=== PATIENT | female | born 2000 | race Hispanic/Latino ===

== ENCOUNTER 2019-07-30 05:58 | Inpatient (IN) | payer MEDICAID, OTHER ==
[2019-07-30 06:21] VITALS: BMI 43.0
[2019-07-30] MEDS ORDERED: hydrALAZINE 20 MG/ML VIAL SLOW IVP PRN ×2 (06:52→07:24)
--- NOTE | 2019-07-30 07:03 | PDOC.FPROB ---
FMR OB H&P: HPI - History of Present Illness Chief Complaint: Vaginal bleeding Indentification: 19 yo at 35.4 weeks EGA by U/S c/w LMP History of Present Illness: Patient is a 19 yo female at 35.4 weeks EGA by 10.4 wk U/S c/w LMP (JESSY 02/2020) who presents to L&D with complaint of vaginal bleeding. She states she woke up around 0400 today and thought she was urinating on herself. When she went to the bathroom she saw a gush of blood, denies any clots. Currently she is having some spotting. She additionally states she now is feeling contractions about every 5 minutes. Previously she said she was experiencing intermittent Ross-Bell contractions (c/w [facility] clinic records) but now feels like her contractions are regular. Patient additionally complains of intermittent back pain and pelvic pain that started this morning as well. Was seen at [facility] yesterday for thick white vaginal discharge, had VP3 and GBS swabs obtained with results still pending. Denies any fever/chills, cough, congestion , dysuria. Primary Care Physician: Bishnu FMR OB H&P: Current - Care : 1 Para: 0 Gestational age: 35.4 Due date: 08/30/2019 Dating Criteria: LMP c/w 10.4 Course/Complications: Obesity LGA fetus on ultrasounds - OB Labs Blood type: O RH: positive Antibody Screen: negative HIV: negative RPR: negative HepBsAg: negative Rubella: immune Urine drug screen: negative Gonorrhea: negative Chlamydia: negative Pap Smear: Not done due to age 1 hour gtt: 103 A1c: 5.2 GBS: unknown (drawn at visit on 07/28) H&H: 10.4/30.5 Platelets: 225 - First Trimester Ultrasound First trimester: 10.4 wk sono c/w JESSY by LMP - Anatomy Survey Anatomy survey: 25.4 wks- 67.7% hadlock, Anterior placenta, suboptimal spine view - Additional Ultrasound Additional: 06/16- 1644g hadlock 92.7% 07/08- 2544g hadlock 95.7%, HARSHA 8.26 FMR OB H&P: History - Past Medical History PMH: Obesity, migraines, and seasonal allergies - OB History OB History: 1st - INSTRUMENT SPECIALIST History INSTRUMENT SPECIALIST History: No hx of STD - Surgical History Sx History: None - Social History Social History: Denies any smoking, drinking or illicit drug use - Family History Family History: Noncontributory FMR OB H&P: Medications - Current Home Medications: Medication Instructions Recorded Confirmed Type Docusate [Colace] 1 tab PO DAILY 07/30/19 07/30/19 History Vit,Babar 74/Iron/Folic 1 tab PO DAILY 07/30/19 07/30/19 History [ Low Iron Tablet] Allergies/Adverse Reactions: Allergies Allergy/AdvReac Type Severity Reaction Status Date / Time No Known Allergies Allergy Verified 07/30/19 06:19 FMR OB H&P: ROS - Review of Systems General: denies: fever/chills, weight/appetite/sleep changes, fatigue Eyes: denies: vision changes ENT: denies: nasal congestion Cardiovascular: denies: chest pain, palpitation, edema Respiratory: denies: cough, congestion, shortness of breath Gastrointestinal: reports: cramping. denies: abdominal pain, nausea, vomiting, constipation Genitourinary (Female): reports: hematuria, vaginal discharge, vaginal bleeding , contractions, vaginal pressure. denies: incontinence, dysuria Musculoskeletal: denies: pain, tenderness, swelling, decrease range of motion, arthritis/arthralgias Neurologic: denies: syncope, weakness, headache Integumentary: denies: itching, rash, lesions Psychological: denies: depression, anxiety FMR OB H&P: Vital Signs - Maternal Vital signs: BP 128/77, HR 98 - Heart Tones Baseline: 145 Variability: moderate Acceleration: present Deceleration: absent Category: category 1 [place] contractions every: 3-5 min FMR OB H&P: Physical Exam - Physical Exam General: NAD, awake, alert and oriented HEENT: normocephalic and atraumatic, EOMI, MMM, conjunctiva clear, no scleral icterus, grossly normal vision, grossly normal hearing Neck: supple, no JVD Chest: non-tender to palpation, no lesions Heart: RRR, normal S1/S2, no murmurs/rubs/gallops, pulses present, no edema General: CTAB, no respiratory distress, good air movement Abdomen: soft, gravid, non-tender Musculoskeletal: pulses present, FROM in all four extremities Neurological: sensation to pain,touch and proprioception grossly normal, no focal deficit Skin: no rash, good tugor, no jaundice Psychiatric: intact recent and remote memory, normal mood and affect - Pelvic Exam Vulva: normal hair distribution, no lesions Cervix: no lesions Deviation from normal: moderate amount of blood tinged fluid pooling in posterior vagina SVE: 50/-2 Armstrong score: 5 Membranes: appears ruptured Presentation: cephalic FMR OB H&P: A/P - Problem List (1) premature rupture of membranes Current Visit: Yes Status: Acute Code(s): O42.919 - PRETRM DARIA ROM, UNSP TIME BETW RUPT AND ONST LABR, UNSP TRI Qualifiers: PROM onset of labor timing: onset of labor within 24 hours of rupture Qualified Code(s): O42.019 - premature rupture of membranes, onset of labor within 24 hours of rupture, unspecified trimester (2) Third trimester at less than 36 weeks Current Visit: Yes Status: Acute Code(s): Z34.93 - ENCNTR FOR SUPRVSN OF NORMAL PREG, UNSP, THIRD TRIMESTER (3) Obesity affecting Current Visit: Yes Status: Acute Code(s): O99.210 - OBESITY COMPLICATING , UNSPECIFIED TRIMESTER Qualifiers: Trimester: third trimester Qualified Code(s): O99.213 - Obesity complicating , third trimester Disposition: Patient is a 19 yo female at 35.4 weeks EGA by 10.4 wk U/S c/w LMP who presents with PPROM: #Third Trimester at 35.4 weeks # PROM -reports blood/fluid loss at approx. 0400 on 07/29 -Amnisure positive for rupture -admit to L&D for monitoring of labor progression -administer 12 mg Betamethasone IM now, plan to repeat in 24 hours -GBS status unknown, swab obtained at [facility] on 07/28 with results pending- will start Penicillin course now -VP3 swab obtained at [facility], results pending -will check urine GC/Chlamydia given patient age <25 -initial cervical check /-2 @ 0730, will recheck in 2-3 hours #Obesity -BMI 43 -patient's last 2 ultrasounds show baby has Hadlock scores of 93% & 95% , suggestive of LGA Diet: Clear Liquids VTE: none Code status: FULL PCP: Bishnu Dispo: Stable, admit to inpatient on L&D unit. Continue monitoring and labor progression. Give steroids and Penicillin. Anticipate LOS >2 days. Discussion: Date/Time: 07/30/19 0702 This H&P was discussed with Dr. Belle and Dr. Jovel who agree with the above documentation and plan. Signature: DO George, PGY1 Addendum - Attending - Attending Attestation Date/Time: 07/30/19 1010 I personally evaluated the patient and discussed the management with Dr. Victoria and Yoshi. I agree with the History, Examination, Assessment and Plan documented above with any addition or exceptions noted below. Gross rupture on speculum exam per upper level. Amnisure positive. Admit. Steroids. PCN.
[2019-07-30] MEDS ORDERED: Acetaminophen 500 MG TAB PO PRN (07:24)
[2019-07-30] MEDS ORDERED: Promethazine HCl 25 MG/ML VIAL IM PRN ×2 (07:24→13:24)
[2019-07-30] MEDS ORDERED: Ondansetron PF 4 MG/2 ML Vial IVP PRN ×2 (07:24→13:24)
[2019-07-30] MEDS ORDERED: Carboprost 250 MCG/ML AMP IM PRN (07:30)
[2019-07-30] MEDS ORDERED: Diphenoxylate HCl/Atropine Tablet PO PRN (07:30)
[2019-07-30] MEDS ORDERED: Penicillin G Potassium 5 MILL.UNITS in Sodium Chloride 0.9% 100 ML IVPB SCH (07:30)
[2019-07-30] MEDS ORDERED: Misoprostol 200 MCG TAB PR PRN (07:30)
[2019-07-30] MEDS ORDERED: Lidocaine 1% (PF) 30 ML VIAL SC PRN (07:30)
[2019-07-30] MEDS ORDERED: NS / Oxytocin 40 units/1000ml 1,000 ML IV PRN (07:30)
[2019-07-30] MEDS ORDERED: Ibuprofen 800 MG TAB PO PRN (07:30)
[2019-07-30] MEDS ORDERED: Methylergonovine 0.2 MG/ML VIAL IM PRN (07:30)
[2019-07-30 07:46] LABS: Amnisure Test RUPTURE DETECTED (No Rupture)
[2019-07-30 07:47] LABS: Amnisure Internal Control QC ACCEPTABLE (ACCEPTABLE)
[2019-07-30] MEDS: Lactated Ringer's 1,000 ML IV SCH (08:28)
[2019-07-30 08:40] LABS: Hemoglobin 11.4 g/dL (12.0-16.0); Mean Corpuscular HGB CONC 31.9 g/dL (32.0-36.0); Mean Corpuscular Hemoglobin 28.1 pg (25.0-35.0); Mean Platelet Volume 11.1 fL (7.4-10.4); Platelet Count 212 thou/uL (130-400); RBC Distribution Width 14.3 % (11.5-14.5); Red Blood Cell (RBC) Count 4.07 mill/uL (4.00-5.20)
[2019-07-30] MEDS ORDERED: Betamet Acet/Betamet Na Ph 30 MG/5 ML VIAL IM SCH (09:00)
[2019-07-30 09:24] LABS: Syphilis Antibody Nonreactive (Nonreactive); Syphilis Antibody Index 0.04 S/CO (<1.00 Non-Reactive)
[2019-07-30 09:25] LABS: HBSAg Index 0.14 S/CO (0-0.99); Hep B Surf Ag Non-Reactive S/CO (NonReactive)
--- NOTE | 2019-07-30 10:04 | PDOC.LDPN ---
Labor & Delivery Progress Note - Subjective Subjective: painful contractions, loss of fluid - Objective Vital signs reviewed and normal: yes General: NAD, resting, breathing through contractions Uterine fundus: non tender SVE: /-2 @ 0945 Dilation: 3 Effacement: 75% Station: -2 FHT: category 1, variability present [place] contractions every: 3-4 min Other exam findings: clear fluid in bed - Assessment (1) premature rupture of membranes Code(s): O42.919 - PRETRM DARIA ROM, UNSP TIME BETW RUPT AND ONST LABR, UNSP TRI Current Visit: Yes Status: Acute Qualifiers: PROM onset of labor timing: onset of labor within 24 hours of rupture Qualified Code(s): O42.019 - premature rupture of membranes, onset of labor within 24 hours of rupture, unspecified trimester (2) Third trimester at less than 36 weeks Code(s): Z34.93 - ENCNTR FOR SUPRVSN OF NORMAL PREG, UNSP, THIRD TRIMESTER Current Visit: Yes Status: Acute (3) Obesity affecting Code(s): O99.210 - OBESITY COMPLICATING , UNSPECIFIED TRIMESTER Current Visit: Yes Status: Acute Qualifiers: Trimester: third trimester Qualified Code(s): O99.213 - Obesity complicating , third trimester Plan: continue plan of care -: Patient is a 19 yo female at 35.4 weeks EGA by 10.4 wk U/S c/w LMP who presents with PPROM: #Third Trimester at 35.4 weeks today # PROM -reports blood/fluid loss at approx. 0400 on 07/29 -Amnisure positive for rupture -administer 12 mg Betamethasone IM @ 0800 on 07/29, plan to repeat in 24 hours -GBS status unknown, swab obtained at [facility] on 07/28 with results pending- started Penicillin course today -VP3 swab obtained at [facility], results pending -will check urine GC/Chlamydia given patient age <25 -initial cervical check /-2 @ 0730 -now /-2 @ 0945, contractions every 3-4 min #Obesity -BMI 43 -patient's last 2 ultrasounds show baby has Hadlock scores of 93% & 95% , suggestive of LGA Diet: Clear Liquids VTE: none Code status: FULL PCP: Bishnu Dispo: Stable, Continue monitoring and labor progression. Will plan for next check in 2 hours, if no change will consider starting labor augmentation ( Pitocin) at that time.
[2019-07-30] MEDS ORDERED: NS w/ Oxytocin 10 units 500 ML IV SCH ×2 (11:45)
--- NOTE | 2019-07-30 11:52 | PDOC.LDPN ---
Labor & Delivery Progress Note - Subjective Subjective: painful contractions, loss of fluid - Objective Vital signs reviewed and normal: yes General: NAD, resting, breathing through contractions Uterine fundus: non tender SVE: /-2 Dilation: 3 Effacement: 75% Station: -2 FHT: category 1, variability present [place] contractions every: 2-3 min - Assessment (1) premature rupture of membranes Code(s): O42.919 - PRETRM DARIA ROM, UNSP TIME BETW RUPT AND ONST LABR, UNSP TRI Current Visit: Yes Status: Acute Qualifiers: PROM onset of labor timing: onset of labor within 24 hours of rupture Qualified Code(s): O42.019 - premature rupture of membranes, onset of labor within 24 hours of rupture, unspecified trimester (2) Third trimester at less than 36 weeks Code(s): Z34.93 - ENCNTR FOR SUPRVSN OF NORMAL PREG, UNSP, THIRD TRIMESTER Current Visit: Yes Status: Acute (3) Obesity affecting Code(s): O99.210 - OBESITY COMPLICATING , UNSPECIFIED TRIMESTER Current Visit: Yes Status: Acute Qualifiers: Trimester: third trimester Qualified Code(s): O99.213 - Obesity complicating , third trimester Plan: continue plan of care, pitocin for augmentation -: Patient is a 19 yo female at 35.4 weeks EGA by 10.4 wk U/S c/w LMP who presents with PPROM: #Third Trimester at 35.4 weeks today # PROM -reports blood/fluid loss at approx. 0400 on 07/29 -Amnisure positive for rupture -administer 12 mg Betamethasone IM @ 0800 on 07/29, plan to repeat in 24 hours -GBS status unknown, swab obtained at [facility] on 07/28 with results pending- started Penicillin course today -VP3 swab obtained at [facility], results pending -will check urine GC/Chlamydia given patient age <25 -initial cervical check /-2 @ 0730; subsequent checks below: -/-2 @ 0945, contractions every 3-4 min -/-2 @ 1145, contractions every 2-3 min, plan to start pitocin #Obesity -BMI 43 -patient's last 2 ultrasounds show baby has Hadlock scores of 93% & 95% , suggestive of LGA Diet: Clear Liquids VTE: none Code status: FULL PCP: Bishnu Dispo: Stable, Continue monitoring and labor progression. Start Pitocin with this check. Will plan for next check in 2 hours, if no change will consider placing an IUPC at that time.
[2019-07-30] MEDS: Penicillin G 2.5 MILL.units 2.5 MILL.UNITS in Premix Bag 1 BAG IVPB SCH ×2 (12:10→16:40)
[2019-07-30] MEDS ORDERED: Fentanyl 4 mcg/Bup 0.1% Cadd 100 ML ONE (12:44)
[2019-07-30] MEDS ORDERED: Naloxone HCl 0.4 mg/ml Vial IVP PRN ×2 (13:24)
[2019-07-30] MEDS ORDERED: diphenhydrAMINE 50 MG/ML VIAL IVP PRN (13:24)
[2019-07-30] MEDS ORDERED: Lactated Ringer's 500 ML IV PRN (13:24)
[2019-07-30] MEDS ORDERED: EPHEDRINE 25 MG/5 ML SYRINGE SLOW IVP PRN (13:24)
[2019-07-30] MEDS ORDERED: Fentanyl 4 mcg/Bupivacaine 0.1% Cassette 100 ML EPIDURAL SCH (13:30)
[2019-07-30] MEDS ORDERED: Communication Order-Pharmacy FS SCH (13:30)
--- NOTE | 2019-07-30 13:58 | PDOC.LDPN ---
Labor & Delivery Progress Note - Subjective Subjective: comfortable, no concerns - Objective Vital signs reviewed and normal: yes General: NAD, resting, breathing through contractions Uterine fundus: non tender SVE: /-1 Dilation: 2 Effacement: 75% Station: -1 FHT: category 1 (FHR 130), variability present [place] contractions every: 2 min - Assessment (1) premature rupture of membranes Code(s): O42.919 - PRETRM DARIA ROM, UNSP TIME BETW RUPT AND ONST LABR, UNSP TRI Current Visit: Yes Status: Acute Qualifiers: PROM onset of labor timing: onset of labor within 24 hours of rupture Qualified Code(s): O42.019 - premature rupture of membranes, onset of labor within 24 hours of rupture, unspecified trimester (2) Third trimester at less than 36 weeks Code(s): Z34.93 - ENCNTR FOR SUPRVSN OF NORMAL PREG, UNSP, THIRD TRIMESTER Current Visit: Yes Status: Acute (3) Obesity affecting Code(s): O99.210 - OBESITY COMPLICATING , UNSPECIFIED TRIMESTER Current Visit: Yes Status: Acute Qualifiers: Trimester: third trimester Qualified Code(s): O99.213 - Obesity complicating , third trimester Plan: continue plan of care, pitocin for augmentation -: Patient is a 19 yo female at 35.4 weeks EGA by 10.4 wk U/S c/w LMP who presents with PPROM: #Third Trimester at 35.4 weeks today # PROM -reports blood/fluid loss at approx. 0400 on 07/29 -Amnisure positive for rupture -administer 12 mg Betamethasone IM @ 0800 on 07/29, plan to repeat in 24 hours -GBS status unknown, swab obtained at [facility] on 07/28 with results pending- started Penicillin course today -VP3 swab obtained at [facility], results pending -will check urine GC/Chlamydia given patient age <25 -initial cervical check /-2 @ 0730; subsequent checks below: /-2 @ 0945, contractions every 3-4 min 75/-2 @ 1145, contractions every 2-3 min, started pitocin /-1 @ 1345, contractions every 2 min, pitocin @ 10 #Obesity -BMI 43 -patient's last 2 ultrasounds show baby has Hadlock scores of 93% & 95% , suggestive of LGA Diet: Clear Liquids VTE: none Code status: FULL PCP: Bishnu Dispo: Stable, Continue monitoring and labor progression. Continue titrating Pitocin. Did receive epidural around 1300. Will plan for next check in 2 hours, if no change will consider placing an IUPC at that time.
--- NOTE | 2019-07-30 16:08 | PDOC.LDPN ---
Labor & Delivery Progress Note - Subjective Subjective: comfortable, no concerns - Objective Vital signs reviewed and normal: yes General: NAD, resting, breathing through contractions Uterine fundus: non tender SVE: /-1 Dilation: 4 Effacement: 90% Station: -1 FHT: category 1, variability present [place] contractions every: 2-3 min IUPC placed: yes (with this check, tolerated well) - Assessment (1) premature rupture of membranes Code(s): O42.919 - PRETRM DARIA ROM, UNSP TIME BETW RUPT AND ONST LABR, UNSP TRI Current Visit: Yes Status: Acute Qualifiers: PROM onset of labor timing: onset of labor within 24 hours of rupture Qualified Code(s): O42.019 - premature rupture of membranes, onset of labor within 24 hours of rupture, unspecified trimester (2) Third trimester at less than 36 weeks Code(s): Z34.93 - ENCNTR FOR SUPRVSN OF NORMAL PREG, UNSP, THIRD TRIMESTER Current Visit: Yes Status: Acute (3) Obesity affecting Code(s): O99.210 - OBESITY COMPLICATING , UNSPECIFIED TRIMESTER Current Visit: Yes Status: Acute Qualifiers: Trimester: third trimester Qualified Code(s): O99.213 - Obesity complicating , third trimester Plan: continue plan of care, pitocin for augmentation -: Patient is a 19 yo female at 35.4 weeks EGA by 10.4 wk U/S c/w LMP who presents with PPROM: #Third Trimester at 35.4 weeks today # PROM -reports blood/fluid loss at approx. 0400 on 07/29 -Amnisure positive for rupture -administer 12 mg Betamethasone IM @ 0800 on 07/29, plan to repeat in 24 hours -GBS status unknown, swab obtained at [facility] on 07/28 with results pending- started Penicillin course today -VP3 swab obtained at [facility], results pending -will check urine GC/Chlamydia given patient age <25 -initial cervical check /-2 @ 0730; subsequent checks below: 75/-2 @ 0945, contractions every 3-4 min 375/-2 @ 1145, contractions every 2-3 min, started pitocin 75/-1 @ 1345, contractions every 2 min, pitocin @ 10, epidural @ 1300 /-1 @ 1545, contractions every 2-3 min, pitocin @ 10, IUPC placed #Obesity -BMI 43 -patient's last 2 ultrasounds show baby has Hadlock scores of 93% & 95% , suggestive of LGA Diet: Clear Liquids VTE: none Code status: FULL PCP: Bishnu Dispo: Stable, Continue monitoring and labor progression. Continue titrating Pitocin. IUPC placed with this check, tolerated well. Will plan for next check in 2-3 hours. Addendum - Attending - Attending Attestation Date/Time: 07/31/19 1019 I personally evaluated the patient and discussed the management with Dr. Victoria. I agree with the History, Examination, Assessment and Plan documented above with any addition or exceptions noted below.
[2019-07-30 18:38] LABS: Chlam.trachomatis by PCR,Urine Not Detected (NotDetected)
[2019-07-30] MEDS ORDERED: Lidocaine 1% (PF) 30 ML VIAL ONE (19:32)
[2019-07-30] MEDS ORDERED: NS / Oxytocin 40 units/1000ml 1,000 ML ONE (19:32)
--- NOTE | 2019-07-30 21:45 | PDOC.OPDEL ---
OB Operative/Delivery Note Delivery Dr/Surgeon: Narcisa Tuttle with Med attending Pre-Delivery Diagnosis: active labor, ruptured membrane Procedure/Post Delivery Dx: spontaneous vaginal delivery Weeks gestation: 35 (4 days) Anesthesia: epidural - Additional Findings/Plan Placenta delivered: spontaneous Repaired Obstetrical Laceration: 2nd degree Estimated blood loss: 592 QBL Compilations/Other Findings: Delivering Physician: Gi Tuttle DO; Kristine Brewster DO Attending: Dr. Ricardo Jovel MD Procedure: Spontaneous Vaginal Delivery Anesthesia: epidural QBL: 529 mL Pre-op Diagnosis: 1. Term intrauterine 2. Anemia of 3. labor Post-op Diagnosis: 1. Term intrauterine , delivered 2. same as above Indications: A 19y/o female at 35.4 wks date dby LMP c/w 10.4 wks sono, presents to L&D with SROM @ 4 AM on 07/29. Delivery Note: This is 19yo F 35.4@ wks who delivered a viable M infant at 20:52 on 07/30/19. Following an uneventful intrapartum course, a vigorous male was delivered over an intact perineum in the occipitoanterior position. Anterior shoulder and then remainder of the body delivered. X1 nuchal cord. The head was held down and mouth and nares were bulb suctioned. Vigorous stimulation with a towel to the infant was performed due to not crying at first. Cord clamped immediately and cut and cord blood collected. Placenta delivered intact in the Christel presentation with a 3 vessel cord noted. Fundal massage was performed and the fundus was firm. The cervix and vagina were inspected and a 2nd degree perineal laceration was noted and repaired with in the usual fashion with good approximation with 2-0 Chromic using local anesthesia. Infant went to nursery in good condition for routine care. Apgars were 8/9 at 1 & 5 minutes, respectively. Patient tolerated delivery well and went to after routine recovery/care. Post delivery plan: routine recovery Addendum - Attending - Attending Attestation Date/Time: 07/31/192102 I was present for the entire delivery. Dr. Figueroa oversaw the repair while I attended another delivery. Greatly appreciate his assistance.
[2019-07-30] MEDS ORDERED: Benzocaine-Menthol 82.5 ML CAN TOP PRN (23:58)
[2019-07-31] MEDS: Ibuprofen 800 MG TAB PO SCH ×4 (01:27→22:53)
[2019-07-31] MEDS: Lactated Ringer's 1,000 ML IV SCH (02:32)
[2019-07-31] MEDS: Penicillin G 2.5 MILL.units 2.5 MILL.UNITS in Premix Bag 1 BAG IVPB SCH (02:33)
[2019-07-31] MEDS ORDERED: hydrALAZINE 20 MG/ML VIAL SLOW IVP PRN (04:00)
[2019-07-31] MEDS ORDERED: Milk Of Magnesia 30 ML UDCUP PO PRN (04:00)
[2019-07-31] MEDS ORDERED: Bisacodyl 10 MG SUPP PR PRN (04:00)
[2019-07-31] MEDS ORDERED: Adacel (T-DAP) 0.5 ML SYRINGE IM ONE (04:00)
[2019-07-31] MEDS ORDERED: Lanolin Ointment 7 GM TUBE TOP PRN (04:00)
[2019-07-31 06:08] LABS: Hemoglobin 9.2 g/dL (12.0-16.0); Mean Corpuscular HGB CONC 32.6 g/dL (32.0-36.0); Mean Corpuscular Hemoglobin 28.8 pg (25.0-35.0); Mean Corpuscular Volume 88.4 fL (78.0-98.0); Mean Platelet Volume 10.9 fL (7.4-10.4); Platelet Count 171 thou/uL (130-400); RBC Distribution Width 14.4 % (11.5-14.5); Red Blood Cell (RBC) Count 3.18 mill/uL (4.00-5.20); White Blood Cell (WBC) Count 15.8 thou/uL (4.8-10.8)
--- NOTE | 2019-07-31 06:28 | PDOC.OBPPN ---
FMR OB PN: Obj - Maternal Vital signs: BP: [] HR: [] RR: [] Tmax: [] Pox: []% on [] Wt: [] - Urine output I&O: 07/29/19 07/30/19 07/31/19 06:59 06:59 06:59 Intake Total 1150 Output Total 617 Balance 533 FMR OB PN: Data - Labs Lab results: Laboratory Results - last 24 hr 07/30/19 07/30/19 07/30/19 07:25 08:28 08:28 WBC RBC Hgb Hct MCV MCH MCHC RDW Plt Count MPV Ur N gonorrhoeae DNA (PCR) Amnio Swab Test RUPTURE DETECTED H Syphilis IgG/IgM Ab Nonreactive Ur C. trach DNA (PCR) Chlamydia/GC Spec Info Hep Bs Antigen Non-Reactive Blood Type Antibody Screen 07/30/19 07/30/19 07/30/19 08:28 08:28 08:56 WBC 12.0 H RBC 4.07 Hgb 11.4 L Hct 35.8 L MCV 88.0 MCH 28.1 MCHC 31.9 L RDW 14.3 Plt Count 212 MPV 11.1 H Ur N gonorrhoeae DNA (PCR) Amnio Swab Test Syphilis IgG/IgM Ab Ur C. trach DNA (PCR) Chlamydia/GC Spec Info Hep Bs Antigen Blood Type O POSITIVE O POSITIVE Antibody Screen NEGATIVE 07/30/19 07/31/19 10:02 05:54 WBC 15.8 H RBC 3.18 L Hgb 9.2 L Hct 28.1 L MCV 88.4 MCH 28.8 MCHC 32.6 RDW 14.4 Plt Count 171 MPV 10.9 H Ur N gonorrhoeae DNA (PCR) Not Detected Amnio Swab Test Syphilis IgG/IgM Ab Ur C. trach DNA (PCR) Not Detected Chlamydia/GC Spec Info Hep Bs Antigen Blood Type Antibody Screen FMR OB PN: A/P - Problem List (1) premature rupture of membranes Current Visit: Yes Status: Acute Code(s): O42.919 - PRETRM DARIA ROM, UNSP TIME BETW RUPT AND ONST LABR, UNSP TRI Qualifiers: PROM onset of labor timing: onset of labor within 24 hours of rupture Qualified Code(s): O42.019 - premature rupture of membranes, onset of labor within 24 hours of rupture, unspecified trimester (2) Third trimester at less than 36 weeks Current Visit: Yes Status: Acute Code(s): Z34.93 - ENCNTR FOR SUPRVSN OF NORMAL PREG, UNSP, THIRD TRIMESTER (3) Obesity affecting Current Visit: Yes Status: Acute Code(s): O99.210 - OBESITY COMPLICATING , UNSPECIFIED TRIMESTER Qualifiers: Trimester: third trimester Qualified Code(s): O99.213 - Obesity complicating , third trimester Discussion: Date/Time: 07/31/19626 This H&P was discussed with [] and [] who agree with the above documentation and plan.
--- NOTE | 2019-07-31 07:54 | PDOC.PP ---
Post Progress Note Post Day #: 1 Subjective: Patient doing well this morning, has no concerns. Has been able to tolerate eating solid foods. Has been using toilet multiple times for voiding. States vaginal pad has been changed twice with just spotting on both pads. Has some tenderness near vaginal laceration repair site, ice packs are helping. Denies headaches, vision changes, chest pain, n/v, edema. PO intake tolerated: yes Flatus: yes Ambulation: yes Vital Signs (12 hours) Temp Pulse Resp BP Pulse Ox 07/31/19 07:49 98.6 F 70 20 122/69 99 07/31/19 04:20 98.8 F 77 18 134/76 97 07/30/19 23:55 98.1 F 90 18 125/65 98 Weight Weight 110.223 kg - Physical Examination General: NAD Cardiovascular: no m/r/g, RRR Respiratory: clear to auscultation bilaterally, non-labored breathing Abdominal: + bowel sounds, lochia (minimal), no distention, appropriately TTP Extremities: negative homans (B) (no edema) Skin: no rash Neurological: no gross focal deficits Psychiatric: A&Ox3, normal affect Result Diagrams: 07/31/19 05:54 Additional Labs: Post Labs Blood Type O POSITIVE 07/30/19 08:56 Hep Bs Antigen Non-Reactive S/CO (NonReactive) 07/30/19 08:28 (1) premature rupture of membranes Code(s): O42.919 - PRETRM DARIA ROM, UNSP TIME BETW RUPT AND ONST LABR, UNSP TRI Status: Acute Qualifiers: PROM onset of labor timing: onset of labor within 24 hours of rupture Qualified Code(s): O42.019 - premature rupture of membranes, onset of labor within 24 hours of rupture, unspecified trimester (2) Third trimester at less than 36 weeks Code(s): Z34.93 - ENCNTR FOR SUPRVSN OF NORMAL PREG, UNSP, THIRD TRIMESTER Status: Acute (3) Obesity affecting Code(s): O99.210 - OBESITY COMPLICATING , UNSPECIFIED TRIMESTER Status: Acute Qualifiers: Trimester: third trimester Qualified Code(s): O99.213 - Obesity complicating , third trimester - Assessment/Plan Patient is a 19 yo female at 35.4 weeks EGA by 10.4 wk U/S c/w LMP who presents with PPROM, is s/p on 07/29 @ 2051: #Third Trimester , delivered at 35.4 weeks on 07/30/2019 @ 2051 # PROM -reports blood/fluid loss at approx. 0400 on 07/29; Amnisure positive for rupture -received 12 mg Betamethasone IM @ 0800 on 07/29 -GBS status unknown, swab obtained at [facility] on 07/28 with results pending- received Penicillin course x3 prior to delivery -VP3 swab obtained at [facility], results pending -urine GC/Chlamydia given patient age <25--negative -post- day#1 after , had 2nd degree laceration repair performed after delivery -continue stool softeners, ice packs, ibuprofen prn #Obesity -BMI 43 -infant was MAURICIO [place], with weight in 75th percentile Diet: Regular VTE: none Code status: FULL PCP: Bishnu Dispo: Stable, Continue routine care and perineal care. Continue pain control. Anticipate discharge tomorrow afternoon. Addendum - Attending - Attending Attestation Date/Time: 07/31/19 1021 I personally evaluated the patient and discussed the management with Dr. Victoria. I agree with the History, Examination, Assessment and Plan documented above with any addition or exceptions noted below.
[2019-07-31] MEDS: Prenatal Vitamin 1 TAB PO SCH (08:04)
[2019-07-31] MEDS: Ferrous Sulfate 325 MG TAB PO SCH ×2 (08:05→16:01)
[2019-07-31] MEDS: Docusate Calcium (SURFAK) 240 MG CAP PO SCH ×2 (08:05→22:54)
[2019-07-31] MEDS: Acetaminophen 325 MG TAB PO PRN (14:30)
[2019-08-01] MEDS: Acetaminophen 325 MG TAB PO PRN (06:07)
--- NOTE | 2019-08-01 07:47 | PDOC.PP ---
Post Progress Note Post Day #: 2 Subjective: Patient doing well this morning. Says she worked with senior treasury consultant yesterday and baby is feeding better on breast. Also signed paperwork for home breast pump and was taught on manual pump to take with her. Says pain is well controlled on Motrin. Has had no further bleeding since yesterday. PO intake tolerated: yes Flatus: yes Ambulation: yes Vital Signs (12 hours) Temp Pulse Resp BP Pulse Ox 07/31/19 19:47 98.9 F 79 12 122/71 99 Weight Weight 110.223 kg - Physical Examination General: NAD Cardiovascular: no m/r/g, RRR Respiratory: clear to auscultation bilaterally, non-labored breathing Abdominal: + bowel sounds, no distention, appropriately TTP Deviation from normal: no edema Skin: no rash Perineum: wnl Neurological: no gross focal deficits Psychiatric: A&Ox3, normal affect Result Diagrams: 07/31/19 05:54 Additional Labs: Post Labs Blood Type O POSITIVE 07/30/19 08:56 Hep Bs Antigen Non-Reactive S/CO (NonReactive) 07/30/19 08:28 (1) premature rupture of membranes Code(s): O42.919 - PRETRM DARIA ROM, UNSP TIME BETW RUPT AND ONST LABR, UNSP TRI Status: Acute Qualifiers: PROM onset of labor timing: onset of labor within 24 hours of rupture Qualified Code(s): O42.019 - premature rupture of membranes, onset of labor within 24 hours of rupture, unspecified trimester (2) Third trimester at less than 36 weeks Code(s): Z34.93 - ENCNTR FOR SUPRVSN OF NORMAL PREG, UNSP, THIRD TRIMESTER Status: Acute (3) Obesity affecting Code(s): O99.210 - OBESITY COMPLICATING , UNSPECIFIED TRIMESTER Status: Acute Qualifiers: Trimester: third trimester Qualified Code(s): O99.213 - Obesity complicating , third trimester - Assessment/Plan Patient is a 19 yo female at 35.4 weeks EGA by 10.4 wk U/S c/w LMP who presents with PPROM, is s/p on 07/29: #Third Trimester , delivered at 35.4 weeks on 07/30/2019 @ 2051 # PROM -reports blood/fluid loss at approx. 0400 on 07/29; Amnisure positive for rupture -received 12 mg Betamethasone IM @ 0800 on 07/29 -GBS status unknown, swab obtained at [facility] on 07/28 with results pending- received Penicillin course x3 prior to delivery -VP3 swab obtained at [facility], results pending -urine GC/Chlamydia given patient age <25--negative -post- day#2 after , had 2nd degree laceration repair performed after delivery -continue stool softeners, ice packs, ibuprofen prn -anticipate discharge home today, may bed/breakfast given her will need to stay for phototherapy #Obesity -BMI 43 - was MAURICIO Elliott, with weight in 75th percentile Diet: Regular VTE: none Code status: FULL PCP: Bishnu Dispo: Stable, Continue routine care and perineal care. Continue pain control. Anticipate discharge today. Addendum - Attending - Attending Attestation Date/Time: 08/01/19 1221 I personally evaluated the patient and discussed the management with Dr. Victoria. I agree with the History, Examination, Assessment and Plan documented above with any addition or exceptions noted below.
[2019-08-01] MEDS: Prenatal Vitamin 1 TAB PO SCH (08:15)
[2019-08-01] MEDS: Ferrous Sulfate 325 MG TAB PO SCH ×2 (08:16→18:01)
[2019-08-01] MEDS: Ibuprofen 800 MG TAB PO SCH ×3 (08:16→22:32)
[2019-08-01] MEDS: Docusate Calcium (SURFAK) 240 MG CAP PO SCH ×2 (08:16→22:31)
[2019-08-02] MEDS: Ibuprofen 800 MG TAB PO SCH (06:43)
--- NOTE | 2019-08-02 07:52 | PDOC.PP ---
Post Progress Note Post Day #: 3 Subjective: Patient doing well this morning. Her infant was placed on phototherapy yesterday so the patient herself wanted to stay 1 more night. Has been ambulating, tolerating PO intake, stooling and voiding without issue. Pain controlled with Ibuprofen. Ready to go home today. PO intake tolerated: yes Flatus: yes Ambulation: yes Vital Signs (12 hours) Temp Pulse Resp BP Pulse Ox 08/01/19 20:04 98.9 F 86 16 125/77 99 08/01/19 20:00 100 Weight Weight 110.223 kg - Physical Examination General: NAD Cardiovascular: no m/r/g, RRR Respiratory: non-labored breathing Abdominal: no distention, appropriately TTP Deviation from normal: no edema Skin: no rash Neurological: no gross focal deficits Psychiatric: A&Ox3, normal affect Result Diagrams: 07/31/19 05:54 Additional Labs: Post Labs Blood Type O POSITIVE 07/30/19 08:56 Hep Bs Antigen Non-Reactive S/CO (NonReactive) 07/30/19 08:28 (1) premature rupture of membranes Code(s): O42.919 - PRETRM DARIA ROM, UNSP TIME BETW RUPT AND ONST LABR, UNSP TRI Status: Acute Qualifiers: PROM onset of labor timing: onset of labor within 24 hours of rupture Qualified Code(s): O42.019 - premature rupture of membranes, onset of labor within 24 hours of rupture, unspecified trimester (2) Third trimester at less than 36 weeks Code(s): Z34.93 - ENCNTR FOR SUPRVSN OF NORMAL PREG, UNSP, THIRD TRIMESTER Status: Acute (3) Obesity affecting Code(s): O99.210 - OBESITY COMPLICATING , UNSPECIFIED TRIMESTER Status: Acute Qualifiers: Trimester: third trimester Qualified Code(s): O99.213 - Obesity complicating , third trimester - Assessment/Plan Patient is a 19 yo female at 35.4 weeks EGA by 10.4 wk U/S c/w LMP who presents with PPROM, is s/p on 07/29 @ 2051: #Third Trimester , delivered at 35.4 weeks on 07/30/2019 @ 2051 # PROM -reports blood/fluid loss at approx. 0400 on 07/29; Amnisure positive for rupture -received 12 mg Betamethasone IM @ 0800 on 07/29 -GBS status unknown, swab obtained at [facility] on 07/28 with results pending prior to delivery-received Penicillin course x3 prior to delivery -results from clinic resulted NEGATIVE -VP3 swab obtained at [facility], results positive for G. vaginalis--will send course of Metronidazole to pharmacy upon d/c -urine GC/Chlamydia given patient age <25--negative -post- day#3 after , had 2nd degree laceration repair performed after delivery -continue stool softeners, ice packs, ibuprofen prn -anticipate discharge home today #Obesity -BMI 43 -infant was MAURICIO Elliott, with weight in 75th percentile Diet: Regular VTE: none Code status: FULL PCP: Bishnu Dispo: Stable, Continue routine care and perineal care. Continue pain control. Anticipate discharge today. Addendum - Attending - Attending Attestation Date/Time: 08/02/19 9409 I personally evaluated the patient and discussed the management with Dr. Victoria. I agree with the History, Examination, Assessment and Plan documented above with any addition or exceptions noted below.
[2019-08-02 07:53] VITALS: BP 126/72; TEMP 98.8
[2019-08-02] MEDS: Ferrous Sulfate 325 MG TAB PO SCH (08:57)
[2019-08-02] MEDS: Prenatal Vitamin 1 TAB PO SCH (08:57)
[2019-08-02] MEDS: Docusate Calcium (SURFAK) 240 MG CAP PO SCH (08:57)
== END 2019-08-02 13:55 | disposition home or self-care (01) | DRG 805 ==
LOC: L&D/OP 05:58 → L&D 07:25 → 3SW 07-31 02:27
PROVIDERS: ADMIT Emergency Medicine; ATTEND Emergency Medicine
PROC: 10E0XZZ Delivery of Products of Conception, External Approach (ICD-10-PCS; principal; 2019-07-30)
PROC: 0KQM0ZZ Repair Perineum Muscle, Open Approach (ICD-10-PCS; 2019-07-30)
DX: O42.013 Preterm premature rupture of membranes, onset of labor within 24 hours of rupture, third trimester (principal); O60.14X0 Preterm labor third trimester with preterm delivery third trimester, not applicable or unspecified; Z37.0 Single live birth; O99.214 Obesity complicating childbirth; E66.9 Obesity, unspecified; Z3A.35 35 weeks gestation of pregnancy; O36.63X0 Maternal care for excessive fetal growth, third trimester, not applicable or unspecified; O99.02 Anemia complicating childbirth; D64.9 Anemia, unspecified; O69.81X0 Labor and delivery complicated by cord around neck, without compression, not applicable or unspecified
CPT/HCPCS: 36415; 51702; 84112; 85027; 86780; 86850; 86900; 86901; 87340; 87491; 87591; 99285; J0702; J2001; J2540; J2590; J3490

== ENCOUNTER 2024-12-04 08:44 | Emergency (ER) | payer MEDICAID, OTHER | END 2024-12-04 11:03 | disposition home or self-care (01) | LOC: ERS 08:44 | DX: O21.9 Vomiting of pregnancy, unspecified (principal); O99.891 Other specified diseases and conditions complicating pregnancy; R19.7 Diarrhea, unspecified; Z3A.12 12 weeks gestation of pregnancy | CPT/HCPCS: 99283; Q0162 ==